=== PATIENT | female | born 1945 | race African-American/Black ===

== ENCOUNTER 2016-12-13 10:45 | Inpatient (IN) | payer OTHER ==
[~2016-12-13] VITALS: Ht 157.5 cm; Wt 80.7 kg
[~2016-12-13 10:45] MED LIST: ASPI-1159 PO; ASPI-864 PO; ATOR40TA70 PO; BENZ100C86 PO; CLON1TAB4 PO; COR6 PO; OMEP20CA10 PO; SULF1TAB48 PO; WARF2.5T47 PO
[2016-12-13 12:30] LABS: EOSINOPHILS % 0.8 % (0.0-5.0); HEMATOCRIT. 35.9 % (36.0-48.0); HEMOGLOBIN. 10.9 g/dL (12.0-16.0); LYMPHOCYTES % 12.6 % (20.0-50.0); MEAN CORPUSCULAR HEMOGLOBIN 23.1 pg (28.0-32.0); MEAN CORPUSCULAR VOLUME 76.5 fL (81.0-99.0); MONOCYTES % 8.2 % (2.0-8.0); NEUTROPHILS % 77.4 % (40.0-76.0); RED CELL DISTRIBUTION WIDTH 19.2 % (11.6-14.6)
[2016-12-13 12:32] LABS: INR 1.6; PROTHROMBIN TIME 16.7 sec (9.4-11.6)
[2016-12-13 12:39] LABS: CARBON DIOXIDE 21 mEq/L (21-32); CHLORIDE 114 mEq/L (98-107); TROPONIN I < 0.02 ng/mL (0.00-0.04)
[2016-12-13] MEDS ORDERED: MORPHINE SULFATE 4 MG/ML CPJ (NOT FOR IM USE) IV ONE ×2 (12:45→15:15)
[2016-12-13 12:55] LABS: PLATELET 114 x1000/uL (130-400)
[2016-12-13 12:56] LABS: MEAN PLATELET VOLUME 9.6 fl (7.4-10.4)
[2016-12-13] MEDS ORDERED: ENOXAPARIN 60MG/0.6ML SYR SUBCUT ONE (15:15)
[2016-12-13] MEDS ORDERED: ONDANSETRON HCL 4MG/2ML VIAL IV PRN (18:00)
[2016-12-13] MEDS ORDERED: ACETAMINOPHEN 325MG TABLET PO PRN (18:00)
[2016-12-13] MEDS ORDERED: DOCUSATE SODIUM 100MG CAPSULE PO PRN (18:00)
[2016-12-13] MEDS ORDERED: NITROGLYCERIN 0.4MG TABLET SL SL PRN (18:00)
[2016-12-13] MEDS ORDERED: TRAMADOL 50MG TABLET PO PRN (18:00)
[2016-12-13] MEDS ORDERED: GUAIFENESIN 200MG/10ML SUGAR FREE UDC PO PRN (18:00)
[2016-12-13] MEDS ORDERED: NA PHOS,M-B/NA PHOS,DI-BA ENEMA 118ML PR PRN (18:00)
[2016-12-13] MEDS ORDERED: MORPHINE SULFATE 2 MG/ML CPJ (NOT FOR IM USE) IV PRN (18:00)
[2016-12-13] MEDS ORDERED: IPRATROPIUM/ALBUTEROL 0.5-3(2.5)MG/3ML NEB INH PRN (18:00)
[2016-12-13] MEDS ORDERED: CLONIDINE 0.1MG TABLET PO PRN (18:00)
[2016-12-13] MEDS ORDERED: MAGNESIUM/ALUMINUM HYDROXIDE/SIMETHICONE 30ML UDC PO PRN (18:00)
[2016-12-13] MEDS ORDERED: DIPHENHYDRAMINE 50MG/ML VIAL IV PRN (18:00)
[2016-12-13] MEDS ORDERED: ZOLPIDEM TARTRATE 5MG TABLET PO PRN (18:00)
[2016-12-13 20:45] VITALS: BP 159/131
[2016-12-13 21:00] VITALS: BP 154/100
[2016-12-13] MEDS ORDERED: WARFARIN SODIUM 2.5MG TABLET PO SCH (21:30)
[2016-12-13 22:01] VITALS: BP 160/99
[2016-12-13] MEDS: METOPROLOL TARTRATE 25MG TABLET PO SCH (22:09)
[2016-12-13] MEDS: ENOXAPARIN 60MG/0.6ML SYR SUBCUT SCH (22:12)
[2016-12-13 23:45] LABS: CREATINE KINASE MB FRACTION 2.3 ng/mL (0.5-3.6); TROPONIN I 0.02 ng/mL (0.00-0.04)
[2016-12-13] MEDS: FAMOTIDINE 20MG/2ML VIAL IV SCH (23:51)
[2016-12-14] VITALS (11 sets, daily range): BP systolic 118–149; BP diastolic 74–99
[2016-12-14 07:42] LABS: CREATINE KINASE 36 IU/L (26-192); CREATINE KINASE MB FRACTION 2.4 ng/mL (0.5-3.6); TROPONIN I < 0.02 ng/mL (0.00-0.04)
[2016-12-14 07:47] LABS: INR 1.9; PROTHROMBIN TIME 19.4 sec (9.4-11.6)
[2016-12-14] MEDS: METOPROLOL TARTRATE 25MG TABLET PO SCH (08:15)
[2016-12-14] MEDS: ENOXAPARIN 60MG/0.6ML SYR SUBCUT SCH (08:16)
[2016-12-14] MEDS: FAMOTIDINE 20MG/2ML VIAL IV SCH (08:16)
[2016-12-14] MEDS ORDERED: ZINC SULFATE 220 MG ( 50 ) CAPSULE PO SCH (09:00)
[2016-12-14] MEDS ORDERED: ASPIRIN 325MG EC TABLET PO SCH (09:00)
[2016-12-14 12:49] LABS: CARBON DIOXIDE 16 mEq/L (21-32); CHLORIDE 110 mEq/L (98-107); TOTAL IRON BINDING CAPACITY 606 ug/dL (250-450)
[2016-12-14 13:01] LABS: FOLIC ACID (FOLATE) SERUM 9.6 ng/mL (>5.38)
[2016-12-14] MEDS ORDERED: SODIUM POLYSTYRENE SULFONATE 15 G/60 ML BOT PO SCH (13:45)
[2016-12-14 14:58] LABS: BASOPHILS % 0.8 % (0.0-2.0); EOSINOPHILS % 0.9 % (0.0-5.0); HEMATOCRIT. 37.7 % (36.0-48.0); HEMOGLOBIN. 11.2 g/dL (12.0-16.0); LYMPHOCYTES % 15.3 % (20.0-50.0); MEAN CORPUSCULAR HEMOGLOBIN 23.4 pg (28.0-32.0); MEAN CORPUSCULAR VOLUME 78.9 fL (81.0-99.0); MEAN PLATELET VOLUME 9.5 fl (7.4-10.4); MONOCYTES % 8.8 % (2.0-8.0); NEUTROPHILS % 74.2 % (40.0-76.0); PLATELET 127 x1000/uL (130-400); RED BLOOD CELL COUNT 4.78 mill/uL (4.2-5.4); RED CELL DISTRIBUTION WIDTH 19.1 % (11.6-14.6)
== END 2016-12-14 19:45 | disposition short-term general hospital (02) | DRG 189 ==
LOC: ER 10:55 → 3WST 15:30 → SUPCPDRO 16:53 → EDBEDREQ 17:06 → EDBEDREQTM 17:06 → ENRESERV 19:28
PROVIDERS: ADMIT Internal Medicine; ATTEND Internal Medicine
DX: J96.00 Acute respiratory failure, unspecified whether with hypoxia or hypercapnia (principal); I26.99 Other pulmonary embolism without acute cor pulmonale; I11.9 Hypertensive heart disease without heart failure; E78.5 Hyperlipidemia, unspecified; E11.9 Type 2 diabetes mellitus without complications; D64.9 Anemia, unspecified; I25.110 Atherosclerotic heart disease of native coronary artery with unstable angina pectoris; E78.00 Pure hypercholesterolemia, unspecified; Z88.8 Allergy status to other drugs, medicaments and biological substances; Z95.2 Presence of prosthetic heart valve; I25.2 Old myocardial infarction; Z95.1 Presence of aortocoronary bypass graft; Z95.0 Presence of cardiac pacemaker; Z79.899 Other long term (current) drug therapy; Z79.82 Long term (current) use of aspirin
CPT/HCPCS: 36415; 71010; 78582; 80053; 80061; 82550; 82553; 82607; 82746; 83036; 83540; 83550; 83880; 84484; 85025; 85610; 93005; 93306; 93970; 96374; 96376; 99291; A9558; C1893; J1650; J2270; J2405; J3490

== ENCOUNTER 2018-01-30 06:28 | Emergency (ER) | payer OTHER ==
[~2018-01-30] VITALS: Ht 160 cm; Wt 77.0 kg
[~2018-01-30 06:28] MED LIST changes: +CLON1TAB12 PO; -CLON1TAB4 PO
[2018-01-30] MEDS ORDERED: HYDROCODONE/ACETAMINOPHEN 5/325MG TABLET PO STA (07:28)
[2018-01-30] MEDS ORDERED: MORPHINE SULFATE 2 MG/ML CPJ (NOT FOR IM USE) IV ONE ×2 (08:00→12:00)
[2018-01-30] MEDS ORDERED: VANCOMYCIN 1 G PREMIX 200 ML IV SCH (08:00)
[2018-01-30 08:19] LABS: HEMATOCRIT. 30.7 % (36.0-48.0); HEMOGLOBIN. 9.5 g/dL (12.0-16.0); PLATELET 170 x1000/uL (130-400); RED BLOOD CELL COUNT 4.73 mill/uL (4.2-5.4); RED CELL DISTRIBUTION WIDTH 21.4 % (11.6-14.6)
[2018-01-30 08:26] LABS: CHLORIDE 106 mEq/L (98-107)
[2018-01-30 08:31] LABS: INR 3.1; PROTHROMBIN TIME 30.4 sec (9.1-11.1)
[2018-01-30 09:54] LABS: PLATELET ESTIMATE NORMAL
[2018-01-30 13:41] VITALS: BP 115/62
== END 2018-01-30 14:24 | disposition short-term general hospital (02) ==
LOC: ER 06:28
DX: L89.220 Pressure ulcer of left hip, unstageable (principal); L89.300 Pressure ulcer of unspecified buttock, unstageable
CPT/HCPCS: 36415; 73521; 80053; 85025; 85610; 87070; 87205; 96365; 96366; 96375; 99285; J2270; J3370

== ENCOUNTER 2018-03-17 14:47 | Emergency (ER) | payer OTHER ==
[~2018-03-17] VITALS: Ht 165.1 cm; Wt 70.0 kg
[2018-03-17] MEDS ORDERED: MORPHINE SULFATE 4 MG/ML CPJ (NOT FOR IM USE) IV STA (15:19)
[2018-03-17] MEDS ORDERED: PIPERACILLIN/TAZ 3.375G PREMIX 50 ML IV ONE (15:30)
[2018-03-17] MEDS ORDERED: SODIUM CHLORIDE 0.9% 1000ML BAG (SEPSIS BOLUS) IV ONE (15:30)
[2018-03-17] MEDS ORDERED: MORPHINE SULFATE 10 MG/ML CPJ IV NR ×2 (16:00→18:15)
[2018-03-17 16:29] LABS: BASOPHILS % 0.9 % (0.0-2.0); EOSINOPHILS % 2.5 % (0.0-5.0); HEMATOCRIT. 27.6 % (36.0-48.0); HEMOGLOBIN. 8.3 g/dL (12.0-16.0); LYMPHOCYTES % 9.4 % (20.0-50.0); MEAN CORPUSCULAR HEMOGLOBIN 19.9 pg (28.0-32.0); MEAN CORPUSCULAR VOLUME 66.3 fL (81.0-99.0); MEAN PLATELET VOLUME 8.8 fl (7.4-10.4); MONOCYTES % 12.1 % (2.0-8.0); NEUTROPHILS % 75.1 % (40.0-76.0); PLATELET 203 x1000/uL (130-400); RED BLOOD CELL COUNT 4.16 mill/uL (4.2-5.4); RED CELL DISTRIBUTION WIDTH 23.4 % (11.6-14.6)
[2018-03-17 16:33] LABS: CHLORIDE 106 mEq/L (98-107)
[2018-03-17 16:48] LABS: PLATELET ESTIMATE NORMAL
[2018-03-17 17:03] LABS: INR 3.1; PROTHROMBIN TIME 30.1 sec (9.1-11.1)
[2018-03-17 17:11] LABS: CLARITY URINE CLEAR (CLEAR); COLOR URINE YELLOW (YELLOW); KETONES URINE NEGATIVE (NEGATIVE); LEUKOCYTE ESTERASE URINE NEGATIVE (NEGATIVE); NITRITE URINE NEGATIVE (NEGATIVE); OCCULT BLOOD URINE NEGATIVE (NEGATIVE); PROTEIN URINE NEGATIVE (NEGATIVE); SPECIFIC GRAVITY URINE 1.019 (1.005-1.030)
[2018-03-17] MEDS ORDERED: IOHEXOL-300 100 ML BOTTLE ONE (17:31)
[2018-03-17] MEDS ORDERED: MORPHINE SULFATE 4 MG/ML CPJ (NOT FOR IM USE) IV ONE (18:00)
[2018-03-17 21:08] VITALS: BP 122/78
== END 2018-03-17 21:11 | disposition short-term general hospital (02) ==
LOC: ER 14:57 → CANBEDREQ 18:12 → ER 21:11
DX: L89.159 Pressure ulcer of sacral region, unspecified stage (principal); L89.229 Pressure ulcer of left hip, unspecified stage; R07.9 Chest pain, unspecified; I48.91 Unspecified atrial fibrillation; I51.9 Heart disease, unspecified; Z86.73 Personal history of transient ischemic attack (TIA), and cerebral infarction without residual deficits; Z95.1 Presence of aortocoronary bypass graft; Z88.6 Allergy status to analgesic agent; Z88.5 Allergy status to narcotic agent; Z88.1 Allergy status to other antibiotic agents; Z79.899 Other long term (current) drug therapy
CPT/HCPCS: 36415; 71045; 72193; 80053; 81003; 83605; 84145; 84484; 85025; 85610; 87040; 87070; 87077; 87086; 87186; 87205; 93005; 96365; 96366; 96375; 96376; 99285; J2270; J2543; J7030; Q9967; A4315

== ENCOUNTER 2018-04-10 17:20 | Emergency (ER) | payer OTHER ==
[~2018-04-10] VITALS: Ht 170.2 cm; Wt 82.0 kg
[2018-04-10] MEDS ORDERED: ONDANSETRON HCL 4MG/2ML INJ IV STA (18:16)
[2018-04-10] MEDS ORDERED: MORPHINE SULFATE 4 MG/ML CPJ (NOT FOR IM USE) IV STA (18:16)
[2018-04-10 19:10] LABS: BASOPHILS % 0.9 % (0.0-2.0); EOSINOPHILS % 6.7 % (0.0-5.0); HEMATOCRIT. 31.2 % (36.0-48.0); LYMPHOCYTES % 13.9 % (20.0-50.0); MEAN CORPUSCULAR HEMOGLOBIN 19.2 pg (28.0-32.0); MEAN CORPUSCULAR VOLUME 66.4 fL (81.0-99.0); MEAN PLATELET VOLUME 8.7 fl (7.4-10.4); MONOCYTES % 12.1 % (2.0-8.0); NEUTROPHILS % 66.4 % (40.0-76.0); PLATELET 177 x1000/uL (130-400); RED CELL DISTRIBUTION WIDTH 21.7 % (11.6-14.6)
[2018-04-10 19:15] LABS: CHLORIDE 108 mEq/L (98-107)
[2018-04-10 19:20] LABS: D-DIMER 2.51 mg/L FEU (<0.50); INR 1.8; PROTHROMBIN TIME 18.4 sec (9.1-11.1)
[2018-04-10 19:29] LABS: PLATELET ESTIMATE NORMAL
[2018-04-10] MEDS ORDERED: IOHEXOL-350 100 ML BOTTLE ONE (21:06)
[2018-04-11] MEDS ORDERED: MORPHINE SULFATE 4 MG/ML CPJ (NOT FOR IM USE) IV ONE (00:30)
[2018-04-11 00:43] VITALS: BP 144/88
== END 2018-04-11 00:43 | disposition short-term general hospital (02) ==
LOC: ER 17:20 → CANBEDREQ 04-11 07:53
DX: J90 Pleural effusion, not elsewhere classified (principal); D50.9 Iron deficiency anemia, unspecified; R07.89 Other chest pain; R10.13 Epigastric pain; M79.605 Pain in left leg; M79.604 Pain in right leg; I48.91 Unspecified atrial fibrillation; I25.10 Atherosclerotic heart disease of native coronary artery without angina pectoris; E11.9 Type 2 diabetes mellitus without complications; I51.9 Heart disease, unspecified; Z87.891 Personal history of nicotine dependence; Z86.73 Personal history of transient ischemic attack (TIA), and cerebral infarction without residual deficits; Z96.89 Presence of other specified functional implants; Z95.1 Presence of aortocoronary bypass graft; Z79.899 Other long term (current) drug therapy; Z79.82 Long term (current) use of aspirin; Z88.5 Allergy status to narcotic agent; Z88.1 Allergy status to other antibiotic agents; Z88.8 Allergy status to other drugs, medicaments and biological substances
CPT/HCPCS: 36415; 71045; 71275; 80053; 83605; 83880; 84484; 85025; 85379; 85610; 93005; 93970; 96374; 96375; 96376; 99285; J2270; J2405; Q9967

== ENCOUNTER 2018-05-30 10:35 | Inpatient (IN) | payer OTHER ==
[~2018-05-30] VITALS: Ht 157.5 cm; Wt 68.7 kg
[2018-05-30 12:09] LABS: HEMATOCRIT. 35.6 % (36.0-48.0); HEMOGLOBIN. 10.4 g/dL (12.0-16.0); MEAN CORPUSCULAR HEMOGLOBIN 18.6 pg (28.0-32.0); MEAN CORPUSCULAR VOLUME 63.6 fL (81.0-99.0); MEAN PLATELET VOLUME 8.6 fl (7.4-10.4); PLATELET 139 x1000/uL (130-400); RED CELL DISTRIBUTION WIDTH 20.8 % (11.6-14.6)
[2018-05-30 12:15] LABS: CHLORIDE 109 mEq/L (98-107)
[2018-05-30 12:45] LABS: NUCLEATED RED BLOOD CELLS 2 /100 WBC
[2018-05-30 12:46] LABS: PLATELET ESTIMATE NORMAL
[2018-05-30] MEDS ORDERED: MORPHINE SULFATE 4 MG/ML CPJ (NOT FOR IM USE) IV ONE (13:00)
[2018-05-30] MEDS ORDERED: ASPIRIN 325MG EC TABLET PO ONE (13:00)
[2018-05-30] MEDS ORDERED: ONDANSETRON HCL 4MG/2ML INJ IV PRN (21:15)
[2018-05-30] MEDS ORDERED: DIPHENHYDRAMINE 50MG/ML VIAL IV PRN (21:15)
[2018-05-30] MEDS ORDERED: ACETAMINOPHEN 325MG TABLET PO PRN (21:15)
[2018-05-30] MEDS ORDERED: GUAIFENESIN 200MG/10ML SUGAR FREE UDC PO PRN (21:15)
[2018-05-30] MEDS ORDERED: MAGNESIUM/ALUMINUM HYDROXIDE/SIMETHICONE 30ML UDC PO PRN (21:15)
[2018-05-30] MEDS ORDERED: IPRATROPIUM/ALBUTEROL 0.5-3(2.5)MG/3ML NEB INH PRN (21:15)
[2018-05-30] MEDS: SODIUM CHLORIDE 0.9% INJ 3ML FLUSH IVF SCH (22:00)
[2018-05-30] MEDS ORDERED: FUROSEMIDE 40MG/4ML VIAL IVP SCH (22:17)
[2018-05-30 22:25] LABS: INR 2.6
[2018-05-30 22:29] LABS: TOTAL IRON BINDING CAPACITY 572 ug/dL (250-450)
[2018-05-31] MEDS: SODIUM CHLORIDE 0.9% INJ 3ML FLUSH IVF SCH ×3 (06:06→22:00)
[2018-05-31 06:22] LABS: CHLORIDE 109 mEq/L (98-107); HEMOGLOBIN. 9.8 g/dL (12.0-16.0); MEAN CORPUSCULAR HEMOGLOBIN 18.4 pg (28.0-32.0); MEAN CORPUSCULAR VOLUME 63.8 fL (81.0-99.0); RED BLOOD CELL COUNT 5.33 mill/uL (4.2-5.4); RED CELL DISTRIBUTION WIDTH 20.3 % (11.6-14.6)
[2018-05-31 07:20] LABS: NUCLEATED RED BLOOD CELLS 1 /100 WBC; PLATELET ESTIMATE NORMAL
[2018-05-31 07:22] LABS: PLATELET 128 x1000/uL (130-400)
[2018-05-31] MEDS ORDERED: WARFARIN SODIUM 2MG TABLET PO ONE (09:30)
[2018-05-31 11:30] VITALS: BP 119/68
[2018-05-31] MEDS ORDERED: FUROSEMIDE 40MG/4ML VIAL IVP SCH (11:30)
[2018-05-31] MEDS ORDERED: LISINOPRIL 2.5MG TABLET PO SCH (11:30)
[2018-05-31] MEDS ORDERED: ASPIRIN 81MG EC TABLET PO SCH (11:30)
[2018-05-31 12:00] VITALS: BP 119/68
[2018-05-31 12:30] LABS: T4 FREE 1.29 ng/dL (0.76-1.46)
[2018-05-31] MEDS: HYDROCODONE/ACETAMINOPHEN 5/325MG TABLET PO PRN ×2 (14:00→21:58)
[2018-05-31 15:39] LABS: CREATINE KINASE 72 IU/L (26-192)
[2018-05-31 15:40] LABS: CREATINE KINASE MB FRACTION 2.2 ng/mL (0.5-3.6)
[2018-05-31 16:00] VITALS: BP 112/67
[2018-05-31] MEDS ORDERED: PNEUMOCOCCAL 23-VAL P-SAC VAC 0.5 ML IM ONE (16:00)
[2018-05-31] MEDS ORDERED: DOCUSATE SODIUM 100MG CAPSULE PO SCH (17:00)
[2018-05-31] MEDS ORDERED: WARFARIN SODIUM 2.5MG TABLET PO NR (18:00)
[2018-05-31 20:00] VITALS: BP 82/43
[2018-05-31 20:26] VITALS: BP 98/56
[2018-05-31] MEDS ORDERED: ATORVASTATIN CALCIUM 40MG TABLET PO SCH (21:00)
== END 2018-05-31 22:00 | disposition short-term general hospital (02) | DRG 292 ==
LOC: ER 10:35 → 5WST 12:58 → ENRESERV 05-31 10:03
PROVIDERS: ADMIT Internal Medicine; ATTEND Internal Medicine
DX: I11.0 Hypertensive heart disease with heart failure (principal); L97.129 Non-pressure chronic ulcer of left thigh with unspecified severity; I50.43 Acute on chronic combined systolic (congestive) and diastolic (congestive) heart failure; I48.2 Chronic atrial fibrillation; E78.5 Hyperlipidemia, unspecified; E78.00 Pure hypercholesterolemia, unspecified; I25.10 Atherosclerotic heart disease of native coronary artery without angina pectoris; Z60.2 Problems related to living alone; Z95.0 Presence of cardiac pacemaker; Z95.1 Presence of aortocoronary bypass graft; Z88.8 Allergy status to other drugs, medicaments and biological substances; Z79.82 Long term (current) use of aspirin; Z79.899 Other long term (current) drug therapy; Z79.01 Long term (current) use of anticoagulants; Z95.2 Presence of prosthetic heart valve; Z88.6 Allergy status to analgesic agent
CPT/HCPCS: 36415; 71045; 80048; 80061; 82550; 82553; 83036; 83540; 83550; 83735; 83880; 84439; 84443; 84484; 85379; 90732; 93005; 93306; 93970; 96374; 96375; 99285; J1940; J2270